=== PATIENT | female | born 1990 | race Caucasian/White ===

== ENCOUNTER 2021-02-26 10:33 | Day surgery (SDC) | payer OTHER ==
[2021-01-29 10:04] VITALS: BMI 29.7
[2021-02-26] MEDS ORDERED: BUPIVACAINE HCL/PF 0.25% (2.5MG/ML) 10 ML VIAL ONE (12:20)
[2021-02-26] MEDS ORDERED: MIDAZOLAM HCL 2 MG/2 ML SINGLE DOSE VIAL ONE (12:51)
[2021-02-26] MEDS ORDERED: LIDOCAINE HCL/PF 2% SDV 5ML VIAL ONE (12:51)
[2021-02-26] MEDS ORDERED: PROPOFOL 20 ML ONE (12:51)
[2021-02-26] MEDS ORDERED: ONDANSETRON 4 MG/2 ML VIAL ONE ×2 (13:08→14:50)
[2021-02-26] MEDS ORDERED: DEXAMETHASONE SOD PHOSPHATE 4 MG/1 ML VIAL ONE (13:08)
[2021-02-26] MEDS ORDERED: ceFAZolin SODIUM 1 GM VIAL ONE (13:08)
[2021-02-26] MEDS ORDERED: KETOROLAC TROMETHAMINE 30 MG/1 ML VIAL ONE (13:08)
[2021-02-26] MEDS ORDERED: BUPIVACAINE HCL/PF 0.25% (2.5MG/ML) 10 ML VIAL IJ ONE ×2 (13:26→14:05)
[2021-02-26] MEDS ORDERED: PROMETHAZINE HCL 25 MG/1 ML VIAL IVPB PRN (14:38)
[2021-02-26] MEDS ORDERED: ONDANSETRON 4 MG/2 ML VIAL IVPUSH PRN (14:38)
[2021-02-26] MEDS ORDERED: oxyCODONE HCL 5 MG TABLET PO PRN ×2 (14:38)
[2021-02-26 15:55] VITALS: BP 118/65; PULSE 84
[2021-02-26 16:21] VITALS: TEMP 98
== END 2021-02-26 16:25 | disposition home or self-care (01) ==
LOC: FASU 10:33
PROVIDERS: ATTEND Orthopaedic Surgery Sports Medicine
PROC: 0SBD4ZZ Excision of Left Knee Joint, Percutaneous Endoscopic Approach (ICD-10-PCS; principal; 2021-02-26 12:30)
PROC: 0SBD4ZZ Excision of Left Knee Joint, Percutaneous Endoscopic Approach (ICD-10-PCS; 2021-02-26 12:30)
DX: S83.282A Other tear of lateral meniscus, current injury, left knee, initial encounter (principal); M23.301 Other meniscus derangements, unspecified lateral meniscus, left knee; M65.9 Synovitis and tenosynovitis, unspecified; X58.XXXA Exposure to other specified factors, initial encounter; Y93.9 Activity, unspecified; Y92.9 Unspecified place or not applicable
CPT/HCPCS: 84703; 88304-TC; 94760